=== PATIENT | male | born 1955 | race Caucasian/White ===

== ENCOUNTER → 2024-07-15 | Outpatient (CLI) | payer MEDICARE | END | disposition home or self-care (01) | LOC: ORTHO 07:50 | PROVIDERS: ATTEND Orthopaedic Surgery | DX: M25.531 Pain in right wrist (principal) ==

== ENCOUNTER → 2024-09-03 | Day surgery (SDC) | payer MEDICARE ==
[2024-09-01 13:10] LABS: BUN 18 mg/dl (9-23); CHLORIDE 105 mmol/L (98-107); POTASSIUM 5.1 mmol/L (3.4-5.1)
[~2024-09-03] VITALS: Ht 170.1 cm; Wt 83.9 kg
[~2024-09-03] MED LIST: BUPivacaine 0.5% 10 ML VIAL ONE; Lactated Ringer's Solution 500 ML IV ONE; Lidocaine Hydrochloride 5 ML AMP ONE; Lidocaine Hydrochloride 5 ML VIAL IV ONE; PROPOFOL 200 MG/20 ML VIAL IV ONE; ceFAZolin sodium/sodium chlor 10 ML IV ONE
[2024-09-03 07:40] VITALS: BP 149/92
[2024-09-03 08:55] VITALS: BP 133/57
[2024-09-03 09:10] VITALS: BP 116/67
[2024-09-03 09:20] VITALS: BP 147/70
[2024-09-03 09:25] VITALS: BP 134/58
== END | disposition home or self-care (01) ==
LOC: SDC 09-01 08:45
PROVIDERS: ATTEND Orthopaedic Surgery
DX: G56.03 Carpal tunnel syndrome, bilateral upper limbs (principal); M19.041 Primary osteoarthritis, right hand; F10.90 Alcohol use, unspecified, uncomplicated; Z87.891 Personal history of nicotine dependence; Z91.040 Latex allergy status; Z79.899 Other long term (current) drug therapy; Z98.890 Other specified postprocedural states

== ENCOUNTER → 2025-06-22 | Day surgery (SDC) | payer MEDICARE ==
[~2025-06-22] VITALS: Ht 172.7 cm; Wt 83.9 kg
[~2025-06-22] MED LIST changes: +ACETAMINOPHEN 0 ML IV ONE; -BUPivacaine 0.5% 10 ML VIAL ONE; +Lactated Ringer's Solution 1,000 ML IV ONE; -Lactated Ringer's Solution 500 ML IV ONE; +Lidocaine Hydrochloride 30 ML VIAL ONE; -Lidocaine Hydrochloride 5 ML AMP ONE
[2025-06-22 07:30] VITALS: BP 117/79
[2025-06-22 09:35] VITALS: BP 124/75
[2025-06-22 09:48] VITALS: BP 133/80
[2025-06-22 10:00] VITALS: BP 133/80
== END | disposition home or self-care (01) ==
LOC: SDC 06-21 13:15
PROVIDERS: ATTEND Orthopaedic Surgery
DX: G56.03 Carpal tunnel syndrome, bilateral upper limbs (principal); Z79.899 Other long term (current) drug therapy; Z98.890 Other specified postprocedural states; Z87.891 Personal history of nicotine dependence